=== PATIENT | female | born 1940 | race Caucasian/White ===

== ENCOUNTER 2016-08-11 12:55 | Emergency (ER) | payer OTHER ==
--- NOTE | 2016-08-11 15:08 | ED NURSING NOTES ---
Clinical Report - Nurses [facility] [address] [place] [address] 08/11/2016 12:58 Patient: GEREMIAS NORTON V TRIAGE Triage time 13:42. Acuity: LEVEL 4. Chief Complaint: LEFT UPPER EXTREMITY PAIN and SWELLING. Location of symptoms- left 4th finger (swollen joint). Alert. No acute distress. SEPSIS SCREEN: Sepsis Screen: negative. Negative (no infection suspected/documented). --13:51 Sussy Prado R.N. 13:42 08/11/16. BP: 156/70. HR: 68. RR: 16. O2 saturation: 100%. Temp: 97.8 F. Pain level now: 2/10. Additional comments: increases with use. --13:51 Sussy Prado R.N. Weight: 61.6 kg estimated. Height/Length: 62 inches Estimated. BMI: 24.9. --13:49 Sussy Prado R.N. Medications AmLODIPine Besylate Oral 5 mg, daily. --13:45 Sussy Prado R.N. Lumigan Ophthalmic (Solution 0.01 %) 1 drop, bid . --13:46 Sussy Prado R.N. Dorzolamide-Timolol Ophthalmic 1 gtt am bopth eyes . --13:46 Sussy Prado R.N. Loratadine Oral 10 mg, daily. --13:47 Sussy Prado R.N. Ranitidine HCl Oral 150 mg, 2x a day. --13:47 Sussy Prado R.N. Lisinopril Oral 40 mg, daily. --13:47 Sussy Prado R.N. Medication/allergy information source: the patient. --13:51 Sussy Prado R.N. Allergies No Known Drug Allergy. --13:48 Sussy Prado R.N. History Arrived by private vehicle. Historian: patient and family. Accompanied by family. Primary physician (dawna). No injury occurred. This occurred (1 weeks ago). She has had swelling and redness. 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 PAST MEDICAL HX: Hypertension. Tetanus status: unknown. The patient is post-menopausal. ( glaucoma). SURGERY HX: No history of previous surgery. SOCIAL HX: Never smoker. No alcohol use or drug use. FALL RISK ASSESSMENT: Fall risk assessment completed. No fall risk identified. NUTRITIONAL RISK ASSESSMENT: The nutritional risk assessment revealed no deficiencies. FUNCTIONAL ASSESSMENT: Functional assessment: no impairments noted. LEARNING NEEDS ASSESSMENT: The learning needs assessment revealed no barriers. SKIN INTEGRITY ASSESSMENT: Skin integrity risk assessment completed. No skin integrity risk identified. --13:51 Sussy Prado R.N. Interventions ID band on patient. To room. --13:51 Sussy Prado R.N. PHYSICAL ASSESSMENT Ambulatory to room. GENERAL / NEURO / PSYCH: Oriented X 4. Alert. Appears in no acute distress. Appears anxious. EXTREMITIES: Limited ROM present. Upper extremity edema. Left hand: tenderness and swelling (pain in the joint). SKIN: Skin intact. Skin is warm and dry. --13:52 Sussy Prado R.N. NURSING PROGRESS NOTES Extremity elevated. Two patient identifiers checked. Call light placed in reach. Side rails up x 1. Bed placed in lowest position. Brakes of bed on. Patient ready for evaluation. --13:52 Sussy Prado R.N. DISPOSITION / DISCHARGE 15:16. Condition at departure: improved. No learning barriers present. Discharge instructions provided and reviewed with the patient. Reviewed medication(s) side effects, precautions, dosing and course information. Prescription(s) given to the patient. Patient verbalized understanding. Written instructions provided in Georgian. The patient was discharged home and accompanied by family. She left the Emergency Department ambulatory and via private vehicle. Family member driving. Medication list reviewed and validated. --15:26 Sussy Prado R.N. 15:23 08/11/16. BP: 122/57. HR: 66. RR: 18. O2 saturation: 100%. Temp: deferred. Pain level now: 03/22. 13:42 08/11/16. BP: 156/70. HR: 68. RR: 16. O2 saturation: 100%. Temp: 97.8 F. Pain level now: 03/22. Additional comments: increases with use. --15:26 Prado, Sussy, R.N. Locked/Released at 08/11/2016 15:27 by Sussy Prado R.N.
--- NOTE | 2016-08-11 15:08 | ED CLINICAL REPORT ---
Clinical Report - Physicians/Mid Levels [facility] [address] [place] [address] 08/11/2016 12:58 Patient: GEREMIAS NORTON V Time Seen: 1346; initial patient contact, initial documentation, patient care assumed. Arrived- By private vehicle. Historian- patient. HISTORY OF PRESENT ILLNESS Chief Complaint: UPPER EXTREMITY PAIN and SWELLING. This started about 1 weeks ago and is still present. It was abrupt in onset and has been constant. Severity is described as being mild. The quality is noted to be "pain". No radiation. Modifying factors- worsened by movement of fingers. Not made better by anything. (L 4th digit). Symptoms located in the area of the left hand. No chest pain, difficulty breathing, sensory loss, motor loss or repetitive hand use at work. She has had swelling, but not had redness. Patient denies an injury. Similar symptoms previously: None. Recent medical care: Not recently seen/assessed. REVIEW OF SYSTEMS All systems otherwise negative, except as recorded above. PAST HISTORY See nurses notes. Hypertension. Glaucoma. SOCIAL HISTORY Never smoker. No alcohol use or drug use. No recent travel. Is a local resident. FAMILY HISTORY Negative. ADDITIONAL NOTES The nursing notes have been reviewed with agreement regarding the chief complaint, HPI, ROS, PMH and patient medications and allergies. PHYSICAL EXAM Vital Signs: 08/11/2016 13:42 BP: 156/70. HR: 68. RR: 16. O2 saturation: 100%. Temp: 97.8 F. Pain level now: 2/10. Have been reviewed as normal and appear to be correct. Appearance: Alert. Oriented X3. No acute distress. Eyes: Pupils equal, round and reactive to light. Eyes normal inspection. Respiratory: No respiratory distress. Skin: Skin intact. Skin warm and dry. Normal skin color. Normal skin turgor. Extremities: Upper extremities abnormal to inspection. Upper extremities exhibit normal ROM. Upper extremities nontender. Upper extremities exhibit edema. Left ring finger: mild tenderness and swelling of the PIP joint. Neurovascular intact distally. No erythema, laceration, abrasion, ecchymosis or puncture wound. No foreign body or deformity. No limitation in movement. No subungual hematoma or amputation present. Extremities otherwise negative. Neuro: Oriented X 3. No motor deficit. No sensory deficit. LABS, X-RAYS, AND EKG X-Rays: X-rays are normal and reveal no acute disease (reviewed by dr tan). Left digit(s) negative. The X-rays were independently viewed by me. PROGRESS AND PROCEDURES Patient counseled in person regarding the patient's stable condition, test results and diagnosis. Differential Diagnosis: I considered fracture, stress fracture, degenerative joint disease, arthritis, rheumatoid arthritis, gout, pseudogout, sprain, soft tissue injury, tendonitis, myositis and fasciitis as a possible cause of upper extremity pain in this patient. This is a partial list of diagnoses considered. Above considerations are based on history, physical exam, reassessment and X-Ray data. Differential diagnosis was discussed with patient. Disposition: Discharged home in good and unchanged condition (15:07). Condition: good and stable. CLINICAL IMPRESSION Acute nontraumatic pain(L 4th digit). INSTRUCTIONS Warnings: GENERAL WARNINGS: Return or contact your physician immediately if your condition worsens or changes unexpectedly, if not improving as expected, or if other problems arise. Specifically return if problem worsens. Prescription Medications: Diclofenac 50 mg tablets: Take 1 tablet orally every 8 hours as needed. Dispense thirty (30). No refills. Follow-up: Follow up with your doctor in about five days even if well. Call for an appointment. Summary of care provided to patient. Understanding of the discharge instructions verbalized by patient. (Electronically signed by Autumn Bergman A.R.N.P. 08/11/2016 15:20)
--- NOTE | 2016-08-11 15:08 | ED NURSING NOTES ---
Clinical Report - Nurses [facility] [address] [place] [address] 08/11/2016 12:58 Patient: GEREMIAS NORTON V TRIAGE Triage time 13:42. Acuity: LEVEL 4. Chief Complaint: LEFT UPPER EXTREMITY PAIN and SWELLING. Location of symptoms- left 4th finger (swollen joint). Alert. No acute distress. SEPSIS SCREEN: Sepsis Screen: negative. Negative (no infection suspected/documented). --13:51 Sussy Prado R.N. 13:42 08/11/16. BP: 156/70. HR: 68. RR: 16. O2 saturation: 100%. Temp: 97.8 F. Pain level now: 2/10. Additional comments: increases with use. --13:51 Sussy Prado R.N. Weight: 61.6 kg estimated. Height/Length: 62 inches Estimated. BMI: 24.9. --13:49 Sussy Prado R.N. Medications AmLODIPine Besylate Oral 5 mg, daily. --13:45 Sussy Prado R.N. Lumigan Ophthalmic (Solution 0.01 %) 1 drop, bid . --13:46 Sussy Prado R.N. Dorzolamide-Timolol Ophthalmic 1 gtt am bopth eyes . --13:46 Sussy Prado R.N. Loratadine Oral 10 mg, daily. --13:47 Sussy Prado R.N. Ranitidine HCl Oral 150 mg, 2x a day. --13:47 Sussy Prado R.N. Lisinopril Oral 40 mg, daily. --13:47 Sussy Prado R.N. Medication/allergy information source: the patient. --13:51 Sussy Prado R.N. Allergies No Known Drug Allergy. --13:48 Sussy Prado R.N. History Arrived by private vehicle. Historian: patient and family. Accompanied by family. Primary physician (dawna). No injury occurred. This occurred (1 weeks ago). She has had swelling and redness. 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 PAST MEDICAL HX: Hypertension. Tetanus status: unknown. The patient is post-menopausal. ( glaucoma). SURGERY HX: No history of previous surgery. SOCIAL HX: Never smoker. No alcohol use or drug use. FALL RISK ASSESSMENT: Fall risk assessment completed. No fall risk identified. NUTRITIONAL RISK ASSESSMENT: The nutritional risk assessment revealed no deficiencies. FUNCTIONAL ASSESSMENT: Functional assessment: no impairments noted. LEARNING NEEDS ASSESSMENT: The learning needs assessment revealed no barriers. SKIN INTEGRITY ASSESSMENT: Skin integrity risk assessment completed. No skin integrity risk identified. --13:51 Sussy Prado R.N. Interventions ID band on patient. To room. --13:51 Sussy Prado R.N. PHYSICAL ASSESSMENT Ambulatory to room. GENERAL / NEURO / PSYCH: Oriented X 4. Alert. Appears in no acute distress. Appears anxious. EXTREMITIES: Limited ROM present. Upper extremity edema. Left hand: tenderness and swelling (pain in the joint). SKIN: Skin intact. Skin is warm and dry. --13:52 Sussy Prado R.N. NURSING PROGRESS NOTES Extremity elevated. Two patient identifiers checked. Call light placed in reach. Side rails up x 1. Bed placed in lowest position. Brakes of bed on. Patient ready for evaluation. --13:52 Sussy Prado R.N. DISPOSITION / DISCHARGE 15:16. Condition at departure: improved. No learning barriers present. Discharge instructions provided and reviewed with the patient. Reviewed medication(s) side effects, precautions, dosing and course information. Prescription(s) given to the patient. Patient verbalized understanding. Written instructions provided in Romansh. The patient was discharged home and accompanied by family. She left the Emergency Department ambulatory and via private vehicle. Family member driving. Medication list reviewed and validated. --15:26 Sussy Prado R.N. 15:23 08/11/16. BP: 122/57. HR: 66. RR: 18. O2 saturation: 100%. Temp: deferred. Pain level now: 03/22. 13:42 08/11/16. BP: 156/70. HR: 68. RR: 16. O2 saturation: 100%. Temp: 97.8 F. Pain level now: 03/22. Additional comments: increases with use. --15:26 Prado, Sussy, R.N. Locked/Released at 08/11/2016 15:27 by Sussy Prado R.N.
--- NOTE | 2016-08-11 15:08 | ED ORDER SUMMARY ---
..... Patient: GEREMIAS NORTON V OrderSheet [facility] VisitID: [id number] [address] [place] [address] 75y, F Registration Date/Time: 08/11/2016 ORDER SHEET Weight: 61.6 kg (estimated) Allergies: No Known Drug Allergy GENERAL ORDERS: Finger Left (4) Urgent (13:56 08/11/2016 Nuha A.R.N.P.) (Ack 14:03 Lex) MEDICATION ORDERS: IV FLUIDS: ORDER SHEET NOTES: [Electronically signed by Autumn BergmanR.N.PDarya (15:20 08/11/2016)] [Electronically signed by Sussy Prado R.N. (15:27 08/11/2016)] [Electronically locked/signed by Sussy Prado R.N. (15:27 08/11/2016)]
--- NOTE | 2016-08-11 15:08 | ED ORDER SUMMARY ---
..... Patient: GEREMIAS NORTON V OrderSheet [facility] VisitID: [id number] [address] [place] [address] 75y, F Registration Date/Time: 08/11/2016 ORDER SHEET Weight: 61.6 kg (estimated) Allergies: No Known Drug Allergy GENERAL ORDERS: Finger Left (4) Urgent (13:56 08/11/2016 Nuha A.R.N.P.) (Ack 14:03 Lex) MEDICATION ORDERS: IV FLUIDS: ORDER SHEET NOTES: [Electronically signed by Autumn BergmanR.N.PDarya (15:20 08/11/2016)] [Electronically signed by Sussy Prado R.N. (15:27 08/11/2016)] [Electronically locked/signed by Sussy Prado R.N. (15:27 08/11/2016)]
--- NOTE | 2016-08-11 15:28 | ED MED RECONCILIATION SUMMARY ---
Patient: GEREMIAS NORTON V Medication Reconciliation Report [facility] VisitID: [id number] [address] [place] [address] 75y, F Registration Date/Time: 08/11/2016 Weight: 61.6 kg Height/Length: 62 in. BMI: 24.9 ALLERGIES: No Known Drug Allergy The patient's Home Medications are listed below: THE FOLLOWING MEDICATIONS NEED TO BE RECONCILED: AmLODIPine Besylate Oral 5 mg, daily Dorzolamide-Timolol Ophthalmic 1 gtt am bopth eyes Lisinopril Oral 40 mg, daily Loratadine Oral 10 mg, daily Lumigan Ophthalmic (0.01 %) 1 drop, bid Ranitidine HCl Oral 150 mg, 2x a day The source(s) of the original Home Medication information: patient The following Medications were given to the patient in the Emergency Department: None. The following Medications were prescribed to the patient: Diclofenac 50 mg tablets: Take 1 tablet orally every 8 hours as needed. Dispense thirty (30). No refills. -- Autumn Bergman A.R.N.P.
--- NOTE | 2016-08-11 15:28 | ED MED RECONCILIATION SUMMARY ---
Patient: GEREMIAS NORTON V Medication Reconciliation Report [facility] VisitID: [id number] [address] [place] [address] 75y, F Registration Date/Time: 08/11/2016 Weight: 61.6 kg Height/Length: 62 in. BMI: 24.9 ALLERGIES: No Known Drug Allergy The patient's Home Medications are listed below: THE FOLLOWING MEDICATIONS NEED TO BE RECONCILED: AmLODIPine Besylate Oral 5 mg, daily Dorzolamide-Timolol Ophthalmic 1 gtt am bopth eyes Lisinopril Oral 40 mg, daily Loratadine Oral 10 mg, daily Lumigan Ophthalmic (0.01 %) 1 drop, bid Ranitidine HCl Oral 150 mg, 2x a day The source(s) of the original Home Medication information: patient The following Medications were given to the patient in the Emergency Department: None. The following Medications were prescribed to the patient: Diclofenac 50 mg tablets: Take 1 tablet orally every 8 hours as needed. Dispense thirty (30). No refills. -- Autumn Bergman A.R.N.P.
--- NOTE | 2016-08-11 15:28 | ED MAR SUMMARY ---
..... Medication Administration Record [facility] [address], [place] [id number] Patient: GEREMIAS NORTON V Visit ID: [id number] 75y, F Weight: 61.6 kg Height/Length: 62 in BMI: 24.9 ALLERGIES: No Known Drug Allergy
--- NOTE | 2016-08-11 15:28 | ED MAR SUMMARY ---
..... Medication Administration Record Merged With [facility] [address], [place] [id number] Patient: GEREMIAS NORTON V Visit ID: [id number] 75y, F Weight: 61.6 kg Height/Length: 62 in BMI: 24.9 ALLERGIES: No Known Drug Allergy
--- NOTE | 2016-08-11 15:28 | ED DISCHARGE INSTRUCTIONS ---
Patient: GEREMIAS NORTON V General Instructions [facility] VisitID: [id number] [place] [address] 75y, F Registration Date/Time: 08/11/2016 Acute nontraumatic pain(L 4th digit). INSTRUCTIONS Warnings: GENERAL WARNINGS: Return or contact your physician immediately if your condition worsens or changes unexpectedly, if not improving as expected, or if other problems arise. Specifically return if problem worsens. Prescription Medications: Diclofenac 50 mg tablets: Take 1 tablet orally every 8 hours as needed. Dispense thirty (30). No refills. Follow-up: Follow up with your doctor in about five days even if well. Call for an appointment. Summary of care provided to patient. Understanding of the discharge instructions verbalized by patient. ADDITIONAL INFORMATION Pain, Uncertain Cause [Acute] Pain is the bodys way of calling attention to a problem. Pain can be caused by many conditions - some minor, some serious. In your case, we were not able to find the exact cause for your pain. However, at this time there is no sign of any serious or life-threatening illness causing your pain. Sometimes more tests will be needed to determine the cause. Other times, just allowing more time to pass will either make it clear what the problem is, or the pain will go away by itself. Home Care: You may use acetaminophen (Tylenol) or ibuprofen (Motrin, Advil) to control pain, unless another medicine was prescribed. [NOTE: If you have chronic liver or kidney disease or ever had a stomach ulcer or GI bleeding, talk with your doctor before using these medicines.] Follow Up with your doctor or as advised by our staff. Get Prompt Medical Attention if any of the following occur: Changes in the pattern of your pain Appearance of new symptoms Fever of 100.4F (38C) or higher, or as directed by your healthcare provider Myositis Myositis is a class of rare auto-immune diseases that cause chronic inflammation. These include Polymyositis, which affects muscles throughout the body, and Dermatomyositis, which affects both skin and muscle. Other forms can affect the joints, heart, lungs and intestines. This condition can be hard to diagnose, because it resembles other diseases. Immune cells in the body usually attack and destroy viruses and harmful bacteria. In myositis, for unknown reasons, the immune system begins attacking the skin and/or muscles. Sometimes other parts of the body are also affected. Myositis may be triggered by exposure to certain chemicals, drugs, or viruses. It is important that you tell your doctor about any [id number] drug use, infection, or exposure to other substances that occurred near the time when your symptoms started. Stopping the exposure or treating the infection may stop myositis. The symptoms of myositis can be very different depending on the type you have. Common symptoms are muscle weakness (especially muscles of the hips and shoulders), loss of energy (fatigue), rash or changes in the skin, and arthritis (swollen, painful joints). You may have trouble climbing stairs, getting out of chairs, lifting heavy things, or raising your arms overhead. Sometimes the muscles ache and become tender. The swallowing muscles may also be affected. The disease usually starts slowly and may take months or years to develop. You may notice that you have periods when your symptoms get worse (active disease) followed by periods where symptoms get better or go away completely (remission). Treatment options include medication, rest, physical therapy and exercise. Your doctor may prescribe oral steroids or drugs that suppress the immune system in order to slow down the progress of the disease. Home Care: If you were prescribed a medication, take it as directed. You may use acetaminophen (Tylenol) or ibuprofen (Motrin, Advil) to control pain, unless another medicine was prescribed. [NOTE: If you have chronic liver or kidney disease or ever had a stomach ulcer or GI bleeding, talk with your doctor before using these medicines.] Dont take ibuprofen or other NSAIDs (non-steroidal anti-inflammatory drugs) if you were prescribed prednisone. Remain physically active. Light exercise and physical activity are helpful to keep your muscles in the best shape possible. Talk to your doctor about an exercise plan that is right for you. If you are having muscle aches, rest as needed. Follow Up with your doctor or as advised by our staff. For more information contact: Myositis Association, www.myositis.org [employer] 811-135-5933, www.arthritis.org Return Promptly or contact your doctor if any of the following occur: Change in bowel or bladder habits Blood in the stool (black or red color) Unexpected weight loss A lump in the breast or elsewhere Difficulty swallowing Change in the appearance of a wart or mole Persistent cough, hoarseness or coughing up blood Night sweats or unexplained fevers Shortness of breath Arthralgia Arthralgia is the term for pain in or around the joint. It is not a disease but a symptom. This may involve one or more joints. Sometimes arthralgias move from joint to joint. There are many causes for joint pain. These include: Injury Osteoarthritis (from wearing out of the joint surface) Rheumatoid arthritis (an autoimmune disease) Gout (inflammation of the joint due to crystals in the joint fluid) Infection inside the joint Bursitis (inflammation of the fluid-filled sacs around the joint) Lupus and other collagen-vascular disease Home Care: Rest the involved joint(s) until your symptoms improve. You may use acetaminophen (Tylenol) or ibuprofen (Motrin, Advil) to control pain, unless another pain medicine was prescribed. [NOTE: If you have chronic liver or kidney disease or ever had a stomach ulcer or GI bleeding, talk with your doctor before using these medicines.] Follow Up with your doctor or as advised by our staff. [NOTE: If you had an X-ray it will be reviewed by a specialist. You will be notified of any new findings that may affect your care.] Return Promptly or contact your doctor if any of the following occurs: Pain increases Pain moves to other joints New rash appears Fever of 100.4F (38C) or higher, or as directed by your healthcare provider You have been given the following additional information: Pain, Uncertain Cause (Acute) Myositis Arthralgia (Electronically signed by Autumn Bergman A.R.N.P. 08/11/2016 15:20)
--- NOTE | 2016-08-11 15:57 | DIAGNOSTIC IMAGING REPORT ---
PROCEDURE: XR FINGER - LEFT INDICATION: PAIN TECHNIQUE: A P hand and two views of the left fourth digit. COMPARISON: None. FINDINGS: No fracture dislocation. Severe fourth PIP joint degenerative changes with soft tissue swelling. Old avulsion fracture of the ulnar styloid. IMPRESSION: 1. 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
== END 2016-08-11 15:16 | disposition home or self-care (01) ==
LOC: ED SRH 12:55
DX: M79.645 Pain in left finger(s) (principal); I10 Essential (primary) hypertension; Z79.899 Other long term (current) drug therapy